=== PATIENT | female | born 1950 | race Caucasian/White ===

== ENCOUNTER 2017-09-04 15:44 | Emergency (ER) | payer OTHER ==
[~2017-09-04] VITALS: Ht 162.6 cm; Wt 92.7 kg
[~2017-09-04 15:44] MED LIST: ADVAIR 250/501 DISK IH; ADVAIR 500/501 DISK IH; ALPRAZOLAM0.5 MG PO; AMBIEN10 MG PO; ANTIVERT25 MG PO; ASPIRIN325 MG PO; AVENTYL,PAMELOR10 MG PO; AVENTYL,PAMELOR25 MG PO; CYCLOBENZAPRINE10 MG PO; DICYCLOMINE HCL10 MG PO; DOCUSATE SODIU100 MG PO; DUONEB 2.5-0.5 M3 ML AEROSOL; EFFEXOR XR75 MG PO; FLONASE16 G1 BOTH NARES; FLUCONAZOLE150 MG PO; FUROSEMIDE20 MG PO; FUROSEMIDE40 MG PO; GABAPENTIN300 MG PO; GEMFIBROZIL600 MG PO; GLIPIZIDE PO; GLUCOTROL5 MG PO; LANSOPRAZOLE30 MG PO; LANTUS 10100 UNITS/ SC; LASIX40 MG PO; LITE COAT ASPI325 M1 PO; LOPRESSOR50 MG PO; LOSARTAN POTAS100 MG PO; MECLIZINE HCL25 MG PO; METHIMAZOLE5 MG PO; METOPROLOL TART50 MG PO; NIFEDIPINE ER30 MG PO; NORTRIPTYLINE PO; NOVOLOG 10100 UNITS/ SC; OXAYDO5 MG PO; PREDNISONE20 MG PO; PREVACID30 MG PO; ROCALTROL0.25 MCG PO; SPIRIVA RESPIMAT4 GM IH; SPIRONOLACTONE50 MG PO; TOPAMAX100 MG PO; TOPIRAMATE25 MG PO; TRAMADOL HCL50 MG PO; VENLAFAXINE H37.5 M3 PO; VENLAFAXINE HCL75 M3 PO; VENTOLIN HFA18 GM IH; VITAMIN D2000 UNIT PO; VYTORIN 10/41 TABLET PO
[2017-09-04 16:46] LABS: BASOPHIL (%) 0.2 % (0-1); EOSINOPHIL (%) 0.1 % (0-5); HEMATOCRIT 28.3 % (36.0-46.0); HEMOGLOBIN 9.4 G/DL (11.9-15.5); IMMATURE GRANULOCYTE (%) 1.9 % (0.0-0.7); LYMPHOCYTE (%) 4.3 % (15-42); LYMPHOCYTE COUNT 0.8 K/uL (1.0-2.8); MCH 29.4 PG (29.0-34.0); MCHC 33.2 G/DL (30.0-36.0); MCV 88.4 FL (83-99); MONOCYTE (%) 3.5 % (3-12); MONOCYTE COUNT 0.6 K/uL (0-0.8); NEUTROPHIL COUNT 16.3 K/uL (1.8-6.4); PLATELET COUNT 409 K/uL (156-360); RBC DIS.WIDTH-CV 14.2 % (11.8-14.6); RBC DIS.WIDTH-SD 45.9 % (39-53); WHITE BLOOD COUNT 18.2 K/uL (4.1-10.2)
[2017-09-04 16:58] LABS: ALBUMIN 2.2 g/dL (3.2-4.8); CHLORIDE 95 mEq/L (99-109); POTASSIUM 5.2 mEq/L (3.7-5.4)
[2017-09-04 16:59] LABS: SODIUM 126 mEq/L (136-147)
[2017-09-04 17:01] LABS: GLUCOSE 78 mg/dL (70-99); TOTAL PROTEIN 6.9 g/dL (6.4-8.3)
[2017-09-04 17:03] LABS: TOTAL BILIRUBIN 3.3 mg/dL (0.0-1.0)
[2017-09-04 17:04] LABS: ALKALINE PHOSPHATASE 422 IU/L (3-129); CREATININE 3.7 mg/dL (0.6-1.3); GFR ESTIMATE (CALCULATED) 13 mL/min/
[2017-09-04 17:06] LABS: AST (GOT) 28 IU/L (2-34); UREA NITROGEN (BUN) 61 mg/dL (9-23)
[2017-09-04 17:07] LABS: ALT (GPT) 16 IU/L (3-49)
[2017-09-04 17:09] LABS: TROP-I INTERPRETATION NEGATIVE; TROPONIN-I 0.05 ng/mL (0.0-0.30)
[2017-09-04 19:31] VITALS: BP 114/54
== END 2017-09-04 19:32 | disposition short-term general hospital (02) ==
LOC: EME 15:44
PROVIDERS: Emergency Medicine Emergency Medical Services
PROC: 05H633Z Insertion of Infusion Device into Left Subclavian Vein, Percutaneous Approach (ICD-10-PCS; principal; 2017-09-04)
DX: N76.89 Other specified inflammation of vagina and vulva (principal); R65.21 Severe sepsis with septic shock; N17.9 Acute kidney failure, unspecified; M72.6 Necrotizing fasciitis; E11.52 Type 2 diabetes mellitus with diabetic peripheral angiopathy with gangrene; R09.02 Hypoxemia; R41.82 Altered mental status, unspecified; E66.01 Morbid (severe) obesity due to excess calories; F17.210 Nicotine dependence, cigarettes, uncomplicated; Z68.35 Body mass index [BMI] 35.0-35.9, adult; Z79.4 Long term (current) use of insulin; I10 Essential (primary) hypertension; E78.5 Hyperlipidemia, unspecified; J44.9 Chronic obstructive pulmonary disease, unspecified; K21.9 Gastro-esophageal reflux disease without esophagitis; F41.9 Anxiety disorder, unspecified; F32.9 Major depressive disorder, single episode, unspecified; Z85.44 Personal history of malignant neoplasm of other female genital organs; Z90.49 Acquired absence of other specified parts of digestive tract
CPT/HCPCS: 80053; 82948; 83605; 84484; 85025; 86850; 86900; 86901; 87040; 99281; 99285; C1751; J2543; J3370; J7040; J7050; S0030